=== PATIENT | female | born 1955 | race Caucasian/White ===

== ENCOUNTER 2016-07-23 11:03 | Emergency (ER) | payer OTHER ==
[~2016-07-23] VITALS: Ht 167.6 cm; Wt 58.9 kg
[2016-07-23] MEDS ORDERED: AUGMENTIN500 MG PO (13:17)
[2016-07-23] MEDS ORDERED: NORCO 5/3251 TABLET PO (13:17)
[2016-07-23] MEDS ORDERED: MOTRIN600 MG PO (13:17)
[2016-07-23] MEDS ORDERED: FLONASE16 G1 BOTH NARES (13:17)
[2016-07-23 13:34] VITALS: BP 136/72
== END 2016-07-23 13:36 | disposition home or self-care (01) ==
LOC: EME 11:03
DX: J01.00 Acute maxillary sinusitis, unspecified (principal); G50.0 Trigeminal neuralgia; G35 Multiple sclerosis
CPT/HCPCS: 99281; 99283

== ENCOUNTER 2016-08-08 19:00 | Emergency (ER) | payer OTHER ==
[~2016-08-08] VITALS: Ht 167.6 cm; Wt 58.8 kg
[~2016-08-08 19:00] MED LIST: AUGMENTIN500 MG PO; FLONASE16 G1 BOTH NARES; MOTRIN600 MG PO; NORCO 5/3251 TABLET PO
[2016-08-08] MEDS ORDERED: PERCOCET 5/31 TABLET PO (20:57)
[2016-08-08 21:09] VITALS: BP 145/83
== END 2016-08-08 21:09 | disposition home or self-care (01) ==
LOC: EME 19:00
DX: M26.603 Bilateral temporomandibular joint disorder, unspecified (principal)
CPT/HCPCS: 70110; 99281; 99283